=== PATIENT | male | born 1980 | race Caucasian/White ===

== ENCOUNTER 2016-09-22 07:30 | Emergency (ER) | payer OTHER ==
--- NOTE | 2016-09-23 08:46 | ER ---
ADMIT: 09/22/2016 RM/LOC: ER [facility] MR#: [id number] [address] [id number] [place] [address] Emergency Room Report SEX: M AGE: 35 : 1980 DATE: 09/22/2016 A 35-year-old comes to the Emergency Department with several hours worth of right upper quadrant abdominal pain. Described it as sharp, crampy feeling. See T-sheet for remainder of history and physical. CBC was normal. CMP was significant for chloride of 111, glucose of 112, and AST of 54 and ALT of 112. An ultrasound revealed a fatty liver. CBC was within normal limits. The patient was diagnosed with abdominal pain. He was encouraged to avoid greasy measl, use Pepcid or Zantac. Follow up with his primary doctor this coming week. DIAGNOSIS: Abdominal pain. Richie Dinero MD/ efren JOB #: [id number] CC: Richei Dinero MD, Attending Physician
== END 2016-09-22 09:26 | disposition home or self-care (01) ==
LOC: ER 07:30
DX: R10.11 Right upper quadrant pain (principal); F17.210 Nicotine dependence, cigarettes, uncomplicated; Z86.19 Personal history of other infectious and parasitic diseases

== ENCOUNTER 2016-10-30 14:09 | Emergency (ER) | payer OTHER ==
--- NOTE | 2016-11-16 16:41 | ER ---
ADMIT: 10/30/2016 RM/LOC: ER [facility] MR#: [id number] [address] [id number] [place] [address] Emergency Room Report SEX: M AGE: 35 : 1980 DATE: 10/30/2016 A 35-year-old mowing, a piece of wire flew cross his leg causing a laceration. See T-sheet for history and physical. DIAGNOSIS: Laceration, subsequent suturing. Instructed to remove the sutures in 10-12 days. Given Keflex prophylaxis. Richie Dinero MD/ efren JOB #: [id number] CC: Jose Martinez MD, Attending Physician Jay Gibson MD, Family Physician
== END 2016-10-30 15:16 | disposition home or self-care (01) ==
LOC: ER 14:09
PROC: 0HQKXZZ Repair Right Lower Leg Skin, External Approach (ICD-10-PCS; principal; 2016-10-30)
DX: S81.811A Laceration without foreign body, right lower leg, initial encounter (principal); F17.210 Nicotine dependence, cigarettes, uncomplicated; Z86.19 Personal history of other infectious and parasitic diseases; W24.0XXA Contact with lifting devices, not elsewhere classified, initial encounter; Y92.009 Unspecified place in unspecified non-institutional (private) residence as the place of occurrence of the external cause